=== PATIENT | male | born 1935 | race Caucasian/White ===

== ENCOUNTER 2018-04-29 12:00 | Observation (INO) ==
--- NOTE | 2018-04-29 14:33 | ED ---
HPI General Chief complaint: Pain: Chronic Stated complaint: Trouble swollowing post surgery x 3 days Time Seen by Provider: 04/29/18 13:53 Source: patient Mode of arrival: ambulatory Limitations: no limitations History of Present Illness HPI narrative: Patient presents with history of recent endoscopy and polyp removal from larynx. At the [facility] by ENT. She has long history of dilatation of esophagus in past. Patient has study that was done at the [facility] that shows narrowing of esophagus and potentially needs dilatation as we speak. Patient has had increasing difficulty with dysphasia and is to a point where he has a hard time swallowing pills. Patient has had minimal intake of liquids over the last 3 days. No chills or fever and stable for 2 days prior to the increasing dysphasia. Patient was sent in by his wood last maker for hydration. Related Data Home Medications Medication Instructions Recorded Confirmed Saccharomyces boulardii [Florastor] 250 mg PO BID 02/06/18 04/29/18 aspirin [Aspirin Low Dose] 81 mg PO DAILY 02/06/18 04/29/18 calcium carbonate [Calcium 600] 600 mg PO DAILY 02/06/18 04/29/18 diltiazem HCl [Cardizem CD] 180 mg PO BID 02/06/18 04/29/18 finasteride 5 mg PO DAILY 02/06/18 04/29/18 levocetirizine [Xyzal] 5 mg PO DAILY 02/06/18 04/29/18 levothyroxine [Synthroid] 100 mcg PO DAILY 02/06/18 04/29/18 loperamide [Imodium A-D] 2 mg PO HS 02/06/18 04/29/18 sertraline [Zoloft] 200 mg PO DAILY 02/06/18 04/29/18 tamsulosin [Flomax] 0.4 mg PO DAILY 02/06/18 04/29/18 hydrocodone-acetaminophen 1 tab PO Q4-6H PRN 04/29/18 04/29/18 Allergies Allergy/AdvReac Type Severity Reaction Status Date / Time codeine Allergy Severe RASH Verified 04/29/18 12:22 Review of Systems ROS: all other systems reviewed are negative [facility] Family History Family History Other Family history non-contributory Social History Social History Substance History: No History of Abuse Second Hand Smoke Exposure: No Smoking Status: Former smoker Tobacco Type: Cigarettes How Often Do You Have a Drink Containing Alcohol: Never Recent Travel in [facility] within the Last 8 Weeks: No Recent Out of Country Travel within the Last 8 Weeks: No Immunization History Tetanus Immunization: Unsure Exam Narrative Exam Narrative: GENERAL: Alert and oriented with total dysphagia. Unable to drink fluids SKIN: Focused skin assessment warm/dry. HEAD: Atraumatic. Normocephalic. EYES: Pupils equal and round. No scleral icterus. No injection or drainage. ENT: No nasal bleeding or discharge. Mucous membranes pink and moist. Posterior fornix normal appearing good no pain with swallowing motion. NECK: Trachea midline. No JVD. CARDIOVASCULAR: Regular rate and rhythm. No murmur appreciated. RESPIRATORY: No accessory muscle use. Clear to auscultation. Breath sounds equal bilaterally. GASTROINTESTINAL: Abdomen soft, non-tender, nondistended. Hepatic and splenic margins not palpable. MUSCULOSKELETAL: No obvious deformities. No clubbing. No cyanosis. No edema. NEUROLOGICAL: Awake and alert. No obvious cranial nerve deficits. Motor grossly within normal limits. Normal speech. PSYCHIATRIC: Appropriate mood and affect; insight and judgment normal. Course Reevaluation(s) Reevaluation #1: Case discussed with outside wood last maker and admitting wood last maker. Patient admitted for med surg with Orth O consult for esophageal instruction. Time: 15:50 Initial Documented Vital Signs Temperature 97.8 F 04/29/18 12:09 Pulse Rate 76 04/29/18 12:09 Respiratory Rate 16 04/29/18 12:09 Blood Pressure 144/76 H 04/29/18 12:09 Pulse Oximetry 95 04/29/18 12:09 Last Documented Vital Signs Temperature 97.7 F 04/30/18 08:00 Pulse Rate 89 04/30/18 08:00 Respiratory Rate 18 04/30/18 08:00 Blood Pressure 189/96 H 04/30/18 08:00 Pulse Oximetry 95 04/30/18 08:00 Critical Care Time Critical Care Time: No Medical Decision Making MDM Narrative Medical decision making narrative: Patient has total obstruction of swallowing and requires admission. Patient had ENT procedure with removal of laryngeal polyp 5 days prior to arrival it could contribute to the evolution of the obstruction. Medical Screen Exam Complete: Yes Emergency Medical Condition: Yes Lab Data Result diagrams: 04/29/18 14:35 04/29/18 14:35 Lab Results 10/06/18 10/06/18 Range/Units 14:35 14:35 CBC w Diff Auto diff final WBC 6.2 (4.0-11.0) th/mm3 RBC 4.96 (4.50-5.90) mil/mm3 Hgb 14.9 (13.0-17.0) gm/dL Hct 43.8 (39.0-51.0) % MCV 88.3 (80.0-100.0) fL MCH 30.0 (27.0-34.0) pg MCHC 34.0 (32.0-36.0) % RDW 13.1 (11.6-17.2) % Plt Count 194 (150-450) th/mm3 MPV 9.1 (7.0-11.0) fL Neut % (Auto) 68.7 (16.0-70.0) % Lymph % (Auto) 17.2 (9.0-44.0) % [place] % (Auto) 11.7 H (0.0-8.0) % Eos % (Auto) 1.7 (0.0-4.0) % Baso % (Auto) 0.7 (0.0-2.0) % Neut # (Auto) 4.3 (1.8-7.7) th/mm3 Lymph # (Auto) 1.1 (1.0-4.8) th/mm3 [place] # (Auto) 0.7 (0.0-0.9) th/mm3 Eos # (Auto) 0.1 (0.0-0.4) th/mm3 Baso # (Auto) 0.0 (0.0-0.2) th/mm3 WBC Differential . Differential Comment . Sodium 139 (136-145) meq/L Potassium 4.8 (3.5-5.1) meq/L Chloride 105 (98-107) meq/L Carbon Dioxide 24.0 (21.0-32.0) meq/L Anion Gap 10 (5-15) meq/L BUN 19 H (7-18) mg/dL Creatinine 1.20 (0.60-1.30) mg/dL Estimated GFR 58 L (>89) mL/min Random Glucose 93 (74-106) mg/dL Calcium 8.4 L (8.5-10.1) mg/dL Magnesium 2.6 H (1.5-2.5) mg/dL Imaging Data Radiologist's impression: Soft Tissue Neck CT 04/29/18 14:39 CONCLUSION: 1. Unremarkable CT soft tissue neck for patient's age. Discharge Plan Discharge Disposition Patient Disposition: 30 Still Patient Physicians Team ED Provider: Zach Valerio Primary Care Provider: Deejay Doherty Attending Provider: Siria Rodriguez Other Providers: Owen Bolivar Discharge Interventions Interventions: ED Discharge Assessment Last Done: 04/29/18 16:48 Status ED Status: Left Department Discharge Information Discharge Date/Time: 04/29/18 16:53
[2018-04-29] MEDS: Sod Chloride 0.9% Inj 1,000 ML IV.SIG SCH ×2 (14:53→15:49)
[2018-04-29 15:09] LABS: Baso % (Auto) 0.7 % (0.0-2.0); Eos # (Auto) 0.1 th/mm3 (0.0-0.4); Eos % (Auto) 1.7 % (0.0-4.0); Hematocrit 43.8 % (39.0-51.0); Hemoglobin 14.9 gm/dL (13.0-17.0); Lymph # (Auto) 1.1 th/mm3 (1.0-4.8); Lymph % (Auto) 17.2 % (9.0-44.0); Mean Corpuscular Volume 88.3 fL (80.0-100.0); Mean Platelet Volume 9.1 fL (7.0-11.0); Mono # (Auto) 0.7 th/mm3 (0.0-0.9); Mono % (Auto) 11.7 % (0.0-8.0); Neut # (Auto) 4.3 th/mm3 (1.8-7.7); Neut % (Auto) 68.7 % (16.0-70.0); Platelet Count 194 th/mm3 (150-450); Red Blood Count 4.96 mil/mm3 (4.50-5.90); Red Cell Distribution Width 13.1 % (11.6-17.2); White Blood Count 6.2 th/mm3 (4.0-11.0)
[2018-04-29] MEDS ORDERED: Sod Chloride 0.9% Inj 1,000 ML IV.CONT SCH (15:45)
[2018-04-29 16:18] LABS: Potassium 4.8 meq/L (3.5-5.1)
[2018-04-29 16:20] LABS: Calcium 8.4 mg/dL (8.5-10.1)
[2018-04-29 16:21] LABS: Magnesium 2.6 mg/dL (1.5-2.5)
--- NOTE | 2018-04-29 16:53 | P.HP ---
History of Present Illness Primary Care Physician: Deejay Doherty MD Chief Complaint: Dysphagia History of Present Illness: Patient with a known medical history of throat cancer with radiation, history of esophageal dilation, history of dysphagia, history of colon cancer with resection, hypertension who presented to the ED with complaints of inability to swallow. Patient underwent a vocal cord polyp removal on April 20, 2018 at [facility], was initially doing well after procedure when around afternoon he developed pain in his throat as well as difficulty swallowing. On Tuesday patient went to the [facility] for evaluation, at that time had a swallow evaluation done showing possible aspiration and reflux. Patient was sent home with recommendations to present to the ED if symptoms worsen. Patient presents today after speaking with his ornament stapler, Dr. Molina, advised patient to come to ED for IV hydration. He has been following with his ornament stapler for the last 20 years. Patient has underwent multiple esophageal dilations with the last one being roughly a year ago. His last EGD and colonoscopy was 2 years ago, at that time EGD was unremarkable. It was found on his colonoscopy 2 years ago that he had colon cancer, he underwent a colon resection with Dr. Lubin. Patient follows with Dr. Lubin who is been following his CEA levels, supposedly they have been trending up over the past 3 months. Patient underwent a CT scan of his abdomen in the past month with recommendations to follow. It should be noted that patient underwent a fundoplication in 2000. Patient has not taken his medications for the past 2 days nor has he been able to eat or drink anything. At the time of assessment patient is awake and alert, is not having trouble breathing, third examined, no erythema or swelling noted. Patient is able to drink a sip of water with complaints of it coming back up. Gastroenterology in to see patient at bedside , and is to undergo EGD in the a.m. at the main for possible esophageal dilation. - Diagnosis (1) Dysphagia (2) History of throat cancer Review of Systems All other systems reviewed negative except as stated in HPI PMFSH - History History Provided By: Patient, Family Member - Medical History Medical History: Medical History (Last Reviewed 04/29/18 @ 18:21 by Margarita Cordero) Dysphagia History of aspiration pneumonia History of colon cancer Hx of radiation therapy Vocal cord polyps - Surgical History Surgical History: Surgical History (Last Reviewed 04/29/18 @ 18:21 by Margarita Cordero) History of Alex fundoplication History of colon resection Hx of appendectomy Hx of inguinal hernia repair - Family History Family History: Family History (Last Updated 04/29/18 @ 18:21 by Margarita Cordero) Other Family history non-contributory - Social History I have reviewed the patient's Social History: Yes - Tobacco History Second Hand Smoke Exposure: No Tobacco Use In Past 30 Days: No Smoking Status: Former smoker Tobacco Type: Cigarettes - Alcohol History How Often Do You Have a Drink Containing Alcohol: Never - Substance Use History Substance History: No History of Abuse - Travel History Recent Travel in the [place] Within the Last 8 Weeks: No Recent Travel Out of the Country Within the Last 8 Weeks: No - Immunization History Tetanus Immunization: Unsure Medications and Allergies Active Medications: Active Medications Sodium Chloride (Ns Inj) 1,000 mls @ 1,000 mls/hr IV.SIG BOLUS TAMARA Stop: 04/30/18 15:44 Last Infusion: 04/29/18 16:43 Dose: Infused Sodium Chloride (Ns Inj) 1,000 mls @ 100 mls/hr IV.CONT .Q10H TAMARA Ondansetron HCl (Zofran Inj) 4 mg IV.PUSH Q6H PRN PRN Reason: NAUSEA OR VOMITING Allergies Allergy/AdvReac Type Severity Reaction Status Date / Time codeine Allergy Severe RASH Verified 04/29/18 12:22 Home Medications Medication Instructions Recorded Confirmed Type Saccharomyces boulardii [Florastor] 250 mg PO BID 02/06/18 04/29/18 History aspirin [Aspirin Low Dose] 81 mg PO DAILY 02/06/18 04/29/18 History calcium carbonate [Calcium 600] 600 mg PO DAILY 02/06/18 04/29/18 History diltiazem HCl [Cardizem CD] 180 mg PO BID 02/06/18 04/29/18 History finasteride 5 mg PO DAILY 02/06/18 04/29/18 History levocetirizine [Xyzal] 5 mg PO DAILY 02/06/18 04/29/18 History levothyroxine [Synthroid] 100 mcg PO DAILY 02/06/18 04/29/18 History loperamide [Imodium A-D] 2 mg PO HS 02/06/18 04/29/18 History sertraline [Zoloft] 200 mg PO DAILY 02/06/18 04/29/18 History tamsulosin [Flomax] 0.4 mg PO DAILY 02/06/18 04/29/18 History hydrocodone-acetaminophen 1 tab PO Q4-6H PRN 04/29/18 04/29/18 History Exam Vital signs: Vital Signs 04/29/18 12:09 04/29/18 15:03 04/29/18 16:29 Temperature 97.8 F Pulse Rate 76 87 80 Respiratory Rate 16 20 20 Blood Pressure 144/76 H 153/75 H 181/74 H Pulse Oximetry 95 95 Intake & Output 04/28/18 04/29/18 04/29/18 18:59 06:59 18:59 Intake Total 1999 Balance 1999 Weight 75.1 kg Intake: IV 1999 NS Inj 1,000 ML @ 1000 mls/hr 1999 IV.SIG BOLUS TAMARA Rx#:[id number] Other: # Voids 3 Narrative: GENERAL: Well-developed, well-nourished patient in [facility]. SKIN: Warm and dry. No rash. HEAD: Normocephalic. Atraumatic. EYES: Pupils equal and round. No scleral icterus. No injection or drainage. ENT: No nasal bleeding or discharge. Mucous membranes pink and moist. NECK: Supple. Trachea midline. CARDIOVASCULAR: Regular rate and rhythm. S1, S2 noted. No murmur appreciated. RESPIRATORY: No accessory muscle use. Clear to auscultation. Breath sounds equal bilaterally. GASTROINTESTINAL: Abdomen soft, non-tender, nondistended. Normoactive bowel sounds x4. MUSCULOSKELETAL: No obvious deformities. Extremities without clubbing, cyanosis , or edema. NEUROLOGICAL: Awake and alert. No obvious cranial nerve deficits. Motor grossly within normal limits. 5/5 muscle strength in bilateral upper and lower extremities. Normal speech. PSYCHIATRIC: Appropriate mood and affect; insight and judgment normal. Results - Labs CBC & Chem 7: 04/29/18 14:35 04/29/18 14:35 Labs: Laboratory Results - last 24 hr 04/29/18 04/29/18 14:35 14:35 CBC w Diff Auto diff final WBC 6.2 RBC 4.96 Hgb 14.9 Hct 43.8 MCV 88.3 MCH 30.0 MCHC 34.0 RDW 13.1 Plt Count 194 MPV 9.1 Neut % (Auto) 68.7 Lymph % (Auto) 17.2 [place] % (Auto) 11.7 H Eos % (Auto) 1.7 Baso % (Auto) 0.7 Neut # (Auto) 4.3 Lymph # (Auto) 1.1 Page # (Auto) 0.7 Eos # (Auto) 0.1 Baso # (Auto) 0.0 WBC Differential . Differential Comment . Sodium 139 Potassium 4.8 Chloride 105 Carbon Dioxide 24.0 Anion Gap 10 BUN 19 H Creatinine 1.20 Estimated GFR 58 L Random Glucose 93 Calcium 8.4 L Magnesium 2.6 H Caprini VTE Risk Assessment Caprini VTE Risk Assessment: Moderate/High Risk (score >= 2) Caprini Risk Assessment Model: Point Value = 1 Point Value = 2 Point Value = 3 Point Value = 5 Age 41-60 Minor surgery BMI > 25 kg/m2 Swollen legs Varicose veins or History of unexplained or recurrent spontaneous Oral contraceptives or hormone replacement Sepsis (< 1 month) Serious lung disease, including pneumonia (< 1 month) Abnormal pulmonary function Acute myocardial infarction Congestive heart failure (< 1 month) History of inflammatory bowel disease Medical patient at bed rest Age 61-74 Arthroscopic surgery Major open surgery (> 45 min) Laparoscopic surgery (> 45 min) Malignancy Confined to bed (> 72 hours) Immobilizing plaster cast Central venous access Age >= 75 History of VTE Family history of VTE Factor V Leiden Prothrombin [id number] Lupus anticoagulant Anticardiolipin antibodies Elevated serum homocysteine Heparin-induced thrombocytopenia Other congenital or acquired thrombophilia Stroke (< 1 month) Elective arthroplasty Hip, pelvis, or leg fracture Acute spinal cord injury (< 1 month) Prophylaxis Regimen: Total Risk Factor Score Risk Level Prophylaxis Regimen 0-1 Low Early ambulation 2 Moderate Order ONE of the following: *Sequential Compression Device (SCD) *Heparin 5000 units SQ BID 3-4 Higher Order ONE of the following medications: *Heparin 5000 units SQ TID *Enoxaparin/Lovenox 40 mg SQ daily (WT < 150 kg, CrCl > 30 mL/min) *Enoxaparin/Lovenox 30 mg SQ daily (WT < 150 kg, CrCl > 10-29 mL/min) *Enoxaparin/Lovenox 30 mg SQ BID (WT < 150 kg, CrCl > 30 mL/min) AND/OR *Sequential Compression Device (SCD) 5 or more Highest Order ONE of the following medications: *Heparin 5000 units SQ TID (Preferred with Epidurals) *Enoxaparin/Lovenox 40 mg SQ daily (WT < 150 kg, CrCl > 30 mL/min) *Enoxaparin/Lovenox 30 mg SQ daily (WT < 150 kg, CrCl > 10-29 mL/min) *Enoxaparin/Lovenox 30 mg SQ BID (WT < 150 kg, CrCl > 30 mL/min) AND *Sequential Compression Device (SCD) Assessment and Plan - Assessment (1) Dysphagia Code(s): R13.10 - Dysphagia, unspecified Status: Acute (2) History of throat cancer Code(s): Z85.819 - Personal history of malignant neoplasm of unspecified site of lip, oral cavity, and pharynx Status: Acute - Plan This is an 82-year-old male patient with: Dysphagia and inability to swallow times 3 days. 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 -Patient recently underwent a vocal cord polyp removal at [facility] on April 20, 2018. -Follows with Dr. Molina, gastroenterology. He recommended presentation to the ED for IV hydration. -Soft tissue of the neck CT was done in ED to rule out any bleeding, inflammation or infection, reviewed and unremarkable. -Ensure hydration, will continue IV fluids. -Monitor for any aspiration. Chest x-ray reviewed showing -CBC and BMP reviewed, essentially unremarkable. -Will hold home medications by mouth. -Gastroenterology has been consulted, input and recommendations appreciated. Plan is to undergo an EGD in the a.m. for possible esophageal dilation. -Patient will be transferred to the [facility] to undergo this procedure tomorrow morning. -It is felt that patient has not eat or drink for the past 3 days nor has he had his p.o. medications at home and this procedure should be done as soon as possible. -Supportive care. Hypertension, chronic: We will monitor blood pressure trends. Patient unable to take anything by mouth. IV Vasotec as needed for elevated BP. History of colon cancer with resection: Being followed with Dr. Wood outpatient. Stable at this time. DVT prophylaxis: SCDs. Hold chemical prophylaxis, patient undergo EGD in a.m. Patient is ambulatory.
--- NOTE | 2018-04-29 17:00 | CT ---
EXAM DATE: 04/29/2018 4:25 PM EDT AGE/SEX: 82 years / Male INDICATIONS: Dysphagia 3 days, Polyp removed from larynx 8 days ago CLINICAL DATA: This is the patient's initial encounter. Patient reports that signs and symptoms have been present for 3 days and indicates a pain score of 9/10. MEDICAL/SURGICAL HISTORY: Carcinoma, colon. Vocal cord polyps Colon resection. Appendectomy. Ing uinal hernia repair. RADIATION DOSE: 15.20 CTDI (mGy) COMPARISON: No prior exams available for comparison. TECHNIQUE: Helical acquisition was performed using a multirow detector CT scanner during the adminis tration of 70ML ml Omnipaque 350 (iohexol) nonionic water-soluble contrast as a single exam dose. U sing automated exposure control and adjustment of the mA and/or kV according to patient size, radiati on dose was kept as low as reasonably achievable to obtain optimal diagnostic quality images. DICOM format image data is available electronically for review and comparison. FINDINGS: Nasopharynx: The nasopharyngeal airway has a normal configuration. No mucosal thickening or mass is seen. Oropharynx: The intrinsic muscles of the tongue are symmetric. The tonsillar pillars are intact. T he prevertebral soft tissues are not thickened. Larynx: The supraglottic, glottic, and infraglottic structures are intact. Parapharyngeal: The parapharyngeal space is intact. Salivary Glands: The parotid and submandibular glands are intact. Lymph Nodes: No enlarged or necrotic-appearing nodes. Thyroid: Homogeneous enhancement without evidence of nodule. Bones: Degenerative changes of the cervical spine. CONCLUSION: 1. Unremarkable CT soft tissue neck for patient's age. Electronically signed by: Jayy Dowd MD 04/29/2018 4:59 PM EDT
--- NOTE | 2018-04-29 18:33 | MB ---
cc: Owen Bolivar MD,Hansel Doherty,Owen Farah MD, MD DATE: 04/29/2018 INDICATIONS FOR CONSULTATION: Dysphagia with history of esophageal stricture and history of dysphagia in the past. HISTORY OF PRESENT ILLNESS: Mr. Lund is an 82-year-old gentleman who has previously had problems with dysphagia requiring EGDs with dilation. This has been done in the past with Dr. Gee, last one he thinks was about 2-1/2 years ago. More recently, he has had a polyp removed from his vocal cords at [facility]. He said 4-5 days after that, he started having more pain and more difficulties with swallowing. That has progressed to where he says he can barely swallow his saliva now. He called Dr. Gee who advised hospital admission for hydration and further treatment. 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 PAST SURGICAL HISTORY: Alex fundoplication, colon resection, appendectomy, inguinal hernia, multiple EGDs, colonoscopies in the past. SOCIAL HISTORY: No tobacco, no alcohol reported. PHYSICAL EXAMINATION: GENERAL: Reveals a well-nourished man in no apparent distress. VITAL SIGNS: Stable. HEAD AND NECK: Anicteric sclerae. CHEST: Bilateral air entry without rales. ABDOMEN: Soft, nontender. No hepatosplenomegaly. Bowel sounds are present. CENTRAL NERVOUS SYSTEM: Nonfocal. RECTAL: Deferred at this time. MEDICINES: 1. Sertraline. 2. Loperamide. 3. Diltiazem. 4. Aspirin. 5. Levoxyl. 6. Thyroxine. 7. Finasteride. 8. Levocetirizine. LABORATORY DATA: White cell count of 6.2, hemoglobin 14.9, creatinine 1.20. CT of the neck is unremarkable. IMPRESSION: Dysphagia with history of esophageal strictures. RECOMMENDATIONS: Esophagogastroduodenoscopy with dilation recommended, timing to be determined, n.p.o. with IV fluid at this time. Further recommendations to follow. Owen Bolivar MD HZ/ct , 05:56 PM , 06:03 PM
[2018-04-29] MEDS: Dextrose 5% in Water Inj 1,000 ML IV.CONT SCH (19:21)
[2018-04-29] MEDS: Morphine Sulfate Inj 2 MG/ML Vial IV.PUSH PRN (20:53)
[2018-04-30] MEDS: Dextrose 5% in Water Inj 1,000 ML IV.CONT SCH ×3 (06:09→19:44)
--- NOTE | 2018-04-30 10:13 | ECG ---
Date Performed: 04/30/2018 Time Performed: 10:01:35 PTAGE: 82 years EKG: Sinus rhythm NORMAL ECG PREVIOUS TRACING : 09/18/2012 13.05 DOCTOR: Alba Nieto Interpretating Date/Time 04/30/2018 10:12:43
[2018-04-30] MEDS ORDERED: fentaNYL Citrate Inj 100 MCG/2 ML Ampul ONE (11:06)
--- NOTE | 2018-04-30 12:04 | P.PN ---
Subjective Interval history: Follow-up visit for dysphasia. Patient seen and examined sitting up in chair with at bedside. Patient is s/p esophageal dilation this a.m. GI. He is seen and examined sitting up in chair in no acute distress. He is sleepy this morning with ongoing pain with swallowing. Diet was advanced by GI, however patient continues to have complaints of pain and inability to swallow. made aware and ordered patient be kept NPO and ordered MBS test. Patient's GI doctor called today and discussed discharge back to [facility] for further workup. Physical Exam Vital signs: Vital Signs 04/29/18 12:09 04/29/18 15:03 04/29/18 16:29 Temperature 97.8 F Pulse Rate 76 87 80 Respiratory Rate 16 20 20 Blood Pressure 144/76 H 153/75 H 181/74 H Pulse Oximetry 95 95 04/29/18 20:00 04/30/18 00:00 04/30/18 04:00 Temperature 97.5 F L 97.8 F 97.3 F L Pulse Rate 78 78 73 Respiratory Rate 20 20 20 Blood Pressure 172/82 H 175/91 H 174/85 H Pulse Oximetry 95 93 L 93 L 04/30/18 06:00 04/30/18 08:00 04/30/18 10:53 Temperature 97.3 F L 97.7 F 98.1 F Pulse Rate 82 89 88 Respiratory Rate 20 18 17 Blood Pressure 158/71 H 189/96 H 166/92 H Pulse Oximetry 94 L 95 96 04/30/18 11:00 04/30/18 11:15 Temperature 97.8 F Pulse Rate 90 82 Respiratory Rate 16 17 Blood Pressure 163/88 H 150/73 H Pulse Oximetry 95 95 Intake & Output 04/29/18 04/30/18 04/30/18 18:59 06:59 18:59 Intake Total 2480 / 2480 1066 / 1066 50 / 50 Output Total 1300 / 1300 Balance 2480 / 2480 -234 / -234 50 / 50 Weight 76.2 kg 76.6 kg Intake: IV 1999 1066 / 1066 D5W Inj 1,000 ML @ 84 mls/hr IV 830 / 830 .CONT .[id number] [facility] Rx#: [id number] NS Inj 1,000 ML @ 100 mls/hr IV 236 / 236 .CONT .Q10H [facility] Rx#:[id number] NS Inj 1,000 ML @ 1000 mls/hr 1999 IV.SIG BOLUS [facility] Rx#:[id number] Oral 480 / 480 0 / 0 Anesthesia Amount 50 / 50 Output: Urine 1300 / 1300 Other: # Voids 2 # Bowel Movements 0 Weight On Admission 76.2 kg Narrative: GENERAL: Well-developed, well-nourished patient in [facility]. SKIN: Warm and dry. No rash. HEAD: Normocephalic. Atraumatic. EYES: Pupils equal and round. No scleral icterus. No injection or drainage. ENT: No nasal bleeding or discharge. Mucous membranes pink and moist. NECK: Supple. Trachea midline. CARDIOVASCULAR: Regular rate and rhythm. RESPIRATORY: No accessory muscle use. Clear to auscultation. Breath sounds equal bilaterally. GASTROINTESTINAL: Abdomen soft, non-tender, nondistended. Normoactive bowel sounds x4. MUSCULOSKELETAL: No obvious deformities. Extremities without clubbing, cyanosis , or edema. NEUROLOGICAL: Awake and alert. No obvious cranial nerve deficits. Motor grossly within normal limits. Moves bilateral upper and lower extremities. Normal speech. PSYCHIATRIC: Appropriate mood and affect; insight and judgment normal. Results - Labs CBC & Chem 7: 04/30/18 12:39 04/30/18 12:39 Laboratory Results - last 24 hr 04/29/18 04/29/18 14:35 14:35 CBC w Diff Auto diff final WBC 6.2 RBC 4.96 Hgb 14.9 Hct 43.8 MCV 88.3 MCH 30.0 MCHC 34.0 RDW 13.1 Plt Count 194 MPV 9.1 Neut % (Auto) 68.7 Lymph % (Auto) 17.2 [place] % (Auto) 11.7 H Eos % (Auto) 1.7 Baso % (Auto) 0.7 Neut # (Auto) 4.3 Lymph # (Auto) 1.1 [place] # (Auto) 0.7 Eos # (Auto) 0.1 Baso # (Auto) 0.0 WBC Differential . Differential Comment . Sodium 139 Potassium 4.8 Chloride 105 Carbon Dioxide 24.0 Anion Gap 10 BUN 19 H Creatinine 1.20 Estimated GFR 58 L Random Glucose 93 Calcium 8.4 L Magnesium 2.6 H - Imaging Impressions Soft Tissue Neck CT 04/29/18 14:39 CONCLUSION: 1. Unremarkable CT soft tissue neck for patient's age. Assessment and Plan - Assessment (1) Dysphagia Code(s): R13.10 - Dysphagia, unspecified Status: Acute (2) History of throat cancer Code(s): Z85.819 - Personal history of malignant neoplasm of unspecified site of lip, oral cavity, and pharynx Status: Acute - Plan This is an 82-year-old male patient with: Dysphagia and inability to swallow times 3 days. 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 -Patient recently underwent a vocal cord polyp removal at [facility] on April 20, 2018. -Follows with Dr. Molina, gastroenterology. -Soft tissue of the neck CT was done in ED to rule out any bleeding, inflammation or infection, reviewed and unremarkable. -GI consulted, appreciate assistance. -s/p EGD dilatation 04/30, but ongoing odynophagia and dysphagia following procedure. -NPO continue IV fluids. -Orders of barium swallow eval. requesting patient be DC so he can followup with [facility]. -Monitor for any aspiration. -CBC and BMP reviewed, essentially unremarkable. -Will hold home medications by mouth. Hypertension, chronic: We will monitor blood pressure trends. Patient unable to take anything by mouth. IV Vasotec as needed for elevated BP. History of colon cancer with resection: Being followed with Dr. Wood outpatient. Stable at this time. DVT prophylaxis: SCDs. Hold chemical prophylaxis, patient undergo EGD in a.m. Patient is ambulatory. Discussed Condition With: Patient, RN and Discharge Planning: Pending GI workup
[2018-04-30] MEDS: dilTIAZem CD 180 MG Capsule PO SCH ×3 (13:30→20:30)
[2018-04-30 13:49] LABS: Baso % (Auto) 0.5 % (0.0-2.0); Eos % (Auto) 0.8 % (0.0-4.0); Hematocrit 42.5 % (39.0-51.0); Hemoglobin 14.4 gm/dL (13.0-17.0); Lymph # (Auto) 0.5 th/mm3 (1.0-4.8); Lymph % (Auto) 7.2 % (9.0-44.0); Mean Corpuscular HGB Conc 33.9 % (32.0-36.0); Mean Corpuscular Hemoglobin 30.9 pg (27.0-34.0); Mean Corpuscular Volume 91.1 fL (80.0-100.0); Mean Platelet Volume 8.3 fL (7.0-11.0); Mono # (Auto) 0.3 th/mm3 (0.0-0.9); Mono % (Auto) 4.9 % (0.0-8.0); Neut # (Auto) 5.5 th/mm3 (1.8-7.7); Neut % (Auto) 86.6 % (16.0-70.0); Platelet Count 177 th/mm3 (150-450); Red Blood Count 4.66 mil/mm3 (4.50-5.90); Red Cell Distribution Width 13.6 % (11.6-17.2); White Blood Count 6.3 th/mm3 (4.0-11.0)
[2018-04-30 14:08] LABS: Calcium 8.4 mg/dL (8.5-10.1); Carbon Dioxide 26.6 meq/L (21.0-32.0); Potassium 4.1 meq/L (3.5-5.1)
[2018-04-30] MEDS: Morphine Sulfate Inj 2 MG/ML Vial IV.PUSH PRN ×2 (15:45→21:34)
[2018-05-01] MEDS: Dextrose 5% in Water Inj 1,000 ML IV.CONT SCH ×4 (03:42→19:27)
[2018-05-01] MEDS ORDERED: Sodium Chloride 0.9% 2 ML Flush PRN IV.FLUSH (05:38)
[2018-05-01] MEDS: dilTIAZem CD 180 MG Capsule PO SCH ×2 (09:03→20:39)
[2018-05-01] MEDS: Sodium Chloride 0.9% 2 ML Flush BID IV.FLUSH SCH ×2 (09:05→20:43)
--- NOTE | 2018-05-01 10:16 | P.PN ---
Subjective Interval history: Follow-up visit for dysphagia. Patient is seen and examined sitting up in chair in no acute distress. Patient continues to have some dysphasia however able to swallow small sips of water. Did manage to take p.o. pills this morning. Hypotensive overnight requiring IV Vasotec. Spoke with on speaker phone. has been in contact with [facility]. and patient requesting to speak to GI. spoke with patient and . Physical Exam Vital signs: Vital Signs 04/30/18 10:53 04/30/18 11:00 04/30/18 11:15 Temperature 98.1 F 97.8 F Pulse Rate 88 90 82 Respiratory Rate 17 16 17 Blood Pressure 166/92 H 163/88 H 150/73 H Pulse Oximetry 96 95 95 04/30/18 12:00 04/30/18 16:00 04/30/18 20:00 Temperature 97.1 F L 97.9 F 97.7 F Pulse Rate 82 82 87 Respiratory Rate 18 18 20 Blood Pressure 108/59 L 126/78 180/105 H Pulse Oximetry 96 91 L 94 L 05/01/18 00:00 05/01/18 04:00 05/01/18 06:20 Temperature 97.4 F L 97.4 F L Pulse Rate 89 66 68 Respiratory Rate 18 18 Blood Pressure 164/85 H 212/100 H 176/84 H Pulse Oximetry 95 97 Intake & Output 04/30/18 05/01/18 05/01/18 18:59 06:59 18:59 Intake Total 570 / 570 1000 / 1000 Output Total 200 / 200 525 / 525 Balance 370 / 370 475 / 475 Weight 76.5 kg Intake: IV 400 / 400 1000 / 1000 D5W Inj 1,000 ML @ 84 mls/hr IV 400 / 400 1000 / 1000 .CONT .[id number] [facility] Rx#: [id number] Oral 120 / 120 Anesthesia Amount 50 / 50 Output: Urine 200 / 200 525 / 525 Other: # Voids 2 Narrative: GENERAL: Well-developed, well-nourished patient in [place]. SKIN: Warm and dry. HEAD: Normocephalic. Atraumatic. EYES: Pupils equal and round. No scleral icterus. No injection or drainage. ENT: No nasal bleeding or discharge. Mucous membranes pink and moist. NECK: Supple. Trachea midline. CARDIOVASCULAR: Regular rate and rhythm. RESPIRATORY: No accessory muscle use. Clear to auscultation. Breath sounds equal bilaterally. GASTROINTESTINAL: Abdomen soft, non-tender, nondistended. Normoactive bowel sounds x4. MUSCULOSKELETAL: No obvious deformities. Extremities without clubbing, cyanosis , or edema. NEUROLOGICAL: Awake and alert. No obvious cranial nerve deficits. Motor grossly within normal limits. Moves bilateral upper and lower extremities. Normal speech. PSYCHIATRIC: Appropriate mood and affect; insight and judgment normal. Results - Labs CBC & Chem 7: 04/30/18 12:39 04/30/18 12:39 Laboratory Results - last 24 hr 04/30/18 04/30/18 12:39 12:39 WBC 6.3 RBC 4.66 Hgb 14.4 Hct 42.5 MCV 91.1 MCH 30.9 MCHC 33.9 RDW 13.6 Plt Count 177 MPV 8.3 Neut % (Auto) 86.6 H Lymph % (Auto) 7.2 L [place] % (Auto) 4.9 Eos % (Auto) 0.8 Baso % (Auto) 0.5 Neut # (Auto) 5.5 Lymph # (Auto) 0.5 L [place] # (Auto) 0.3 Eos # (Auto) 0.0 Baso # (Auto) 0.0 WBC Differential . Differential Comment Auto diff final Sodium 140 Potassium 4.1 Chloride 104 Carbon Dioxide 26.6 Anion Gap 9 BUN 16 Creatinine 0.98 Estimated GFR 74 L Random Glucose 114 H Calcium 8.4 L Assessment and Plan - Assessment (1) Dysphagia Code(s): R13.10 - Dysphagia, unspecified Status: Acute (2) History of throat cancer Code(s): Z85.819 - Personal history of malignant neoplasm of unspecified site of lip, oral cavity, and pharynx Status: Acute - Plan This is an 82-year-old male patient with: Dysphagia and inability to swallow times 3 days. 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 -Patient recently underwent a vocal cord polyp removal at [facility] on April 20, 2018. -Follows with Dr. Molina, gastroenterology. -Soft tissue of the neck CT was done in ED to rule out any bleeding, inflammation or infection, reviewed and unremarkable. -GI consulted, appreciate assistance. -s/p EGD dilatation 04/30, but ongoing odynophagia and dysphagia following procedure. -NPO except for mediations. IVF held overnight due to HTN. -Orders of barium swallow eval. -Monitor for any aspiration. -CBC and BMP reviewed, essentially unremarkable. Hypertension, chronic: IV Vasotec as needed for elevated BP, took Cardizem p.o. this a.m. BP improved. History of colon cancer with resection: Being followed with Dr. Wood outpatient. Stable at this time. DVT prophylaxis: SCDs. Patient is ambulatory. Discussed Condition With: Patient, , RN and . Discharge Planning: Pending GI workup
--- NOTE | 2018-05-01 14:53 | FL ---
EXAM DATE: 05/01/2018 12:00 AM EDT AGE/SEX: 82 years / Male INDICATIONS: Dysphagia. CLINICAL DATA: This is the patient's initial encounter. Patient reports that signs and symptoms have been present for 3 days and indicates a pain score of 4/10. MEDICAL/SURGICAL HISTORY: Carcinoma, colon. None. COMPARISON: None . FLUORO TIME: 0.5 IMAGE COUNT: 66 FINDINGS: The examination was abbreviated as the patient began to vomit. Contrast views of the hypopharynx demo nstrate a normal mucosal surface without filling defect. Rapid sequence images of the hypopharynx an d cervical esophagus during the passage of barium demonstrate luminal narrowing involving the cervica l esophagus at the level of thoracic inlet. This is mild in nature. No associated mucosal abnormality is seen. Inferior to this the esophagus shows a normal caliber and course. No evidence of aspiration . Poor primary peristalsis seen throughout the thoracic esophagus with multiple tertiary contraction s. The gastroesophageal junction is normal in configuration without evidence of hiatal hernia. CONCLUSION: 1. The examination was abbreviated because the patient began to vomit. 2. Mild narrowing of the lumen of the esophagus at the level of the thoracic inlet without associate d mucosal abnormality. This could relate to edema given the patient's history of recent surgery per h is report. Scarring can have a similar appearance. 3. Delayed transit through the esophagus secondary to poor primary peristalsis and multiple tertiary contractions suggesting presbyesophagus. Electronically signed by: Damien Ko MD 05/01/2018 2:52 PM EDT
--- NOTE | 2018-05-01 15:41 | P.PNGI ---
Subjective Interval history: Patient sitting up on couch in room, spouse present. Patient reporting continued difficulty swallowing some medications with frequent need to sip water. <Darrell,Cyn - Last Filed: 05/01/18 15:22> Physical Exam Vital signs: Vital Signs 04/30/18 16:00 04/30/18 20:00 05/01/18 00:00 Temperature 97.9 F 97.7 F 97.4 F L Pulse Rate 82 87 89 Respiratory Rate 18 20 18 Blood Pressure 126/78 180/105 H 164/85 H Pulse Oximetry 91 L 94 L 95 05/01/18 04:00 05/01/18 06:20 05/01/18 08:00 Temperature 97.4 F L 97.7 F Pulse Rate 66 68 79 Respiratory Rate 18 17 Blood Pressure 212/100 H 176/84 H 120/66 Pulse Oximetry 97 95 05/01/18 12:00 Temperature 97.6 F Pulse Rate 63 Respiratory Rate 18 Blood Pressure 132/67 Pulse Oximetry 95 Intake & Output 04/30/18 05/01/18 05/01/18 18:59 06:59 18:59 Intake Total 570 / 570 1000 / 1000 Output Total 200 / 200 525 / 525 Balance 370 / 370 475 / 475 Weight 76.5 kg Intake: IV 400 / 400 1000 / 1000 D5W Inj 1,000 ML @ 84 mls/hr IV 400 / 400 1000 / 1000 .CONT .[id number] [facility] Rx#: [id number] Oral 120 / 120 Anesthesia Amount 50 / 50 Output: Urine 200 / 200 525 / 525 Other: # Voids 2 Date of Last Bowel Movement 04/29/18 - Constitutional mild distress - Routine HEENT Exam Head: Present: normocephalic ENT: Present: mucous membranes moist, mucous membranes dry - Routine Neck Exam Absent: swelling - Routine Respiratory Exam Present: CTA bilaterally. Absent: accessory muscle use - Routine Cardiovascular Exam Present: RRR - Routine Abdominal Exam Present: soft, normoactive bowel sounds. Absent: tenderness, distended, guarding, firm - Routine Extremities Exam Present: full ROM. Absent: edema - Routine Skin Exam Present: dry, warm - Routine Neurological Exam Present: alert, oriented X3 - Detailed Neurological Exam: Coma Scale Eye Opening: Spontaneous Verbal Response: Oriented Motor Response: Obey commands [place] Coma Scale Total: 15 - Routine Psychiatric Exam Present: normal affect, cooperative <Cyn Ramírez - Last Filed: 05/01/18 15:22> Vital signs: Vital Signs 04/30/18 20:00 05/01/18 00:00 05/01/18 04:00 Temperature 97.7 F 97.4 F L 97.4 F L Pulse Rate 87 89 66 Respiratory Rate 20 18 18 Blood Pressure 180/105 H 164/85 H 212/100 H Pulse Oximetry 94 L 95 97 05/01/18 06:20 05/01/18 08:00 05/01/18 12:00 Temperature 97.7 F 97.6 F Pulse Rate 68 79 63 Respiratory Rate 17 18 Blood Pressure 176/84 H 120/66 132/67 Pulse Oximetry 95 95 Intake & Output 04/30/18 05/01/18 05/01/18 18:59 06:59 18:59 Intake Total 570 / 570 1000 / 1000 Output Total 200 / 200 525 / 525 Balance 370 / 370 475 / 475 Weight 76.5 kg Intake: IV 400 / 400 1000 / 1000 D5W Inj 1,000 ML @ 84 mls/hr IV 400 / 400 1000 / 1000 .CONT .[id number] [facility] Rx#: [id number] Oral 120 / 120 Anesthesia Amount 50 / 50 Output: Urine 200 / 200 525 / 525 Other: # Voids 2 Date of Last Bowel Movement 04/29/18 <Owen Bolivar - Last Filed: 05/01/18 16:40> Results - Labs CBC & Chem 7: 04/30/18 12:39 04/30/18 12:39 - Imaging Impressions Barium Swallow X-Ray 05/01/18 00:00 CONCLUSION: 1. The examination was abbreviated because the patient began to vomit. 2. Mild narrowing of the lumen of the esophagus at the level of the thoracic inlet without associated mucosal abnormality. This could relate to edema given the patient's history of recent surgery per his report. Scarring can have a similar appearance. 3. Delayed transit through the esophagus secondary to poor primary peristalsis and multiple tertiary contractions suggesting presbyesophagus. <Cyn Ramírez - Last Filed: 05/01/18 15:22> - Labs CBC & Chem 7: 04/30/18 12:39 04/30/18 12:39 - Imaging Impressions Barium Swallow X-Ray 05/01/18 00:00 CONCLUSION: 1. The examination was abbreviated because the patient began to vomit. 2. Mild narrowing of the lumen of the esophagus at the level of the thoracic inlet without associated mucosal abnormality. This could relate to edema given the patient's history of recent surgery per his report. Scarring can have a similar appearance. 3. Delayed transit through the esophagus secondary to poor primary peristalsis and multiple tertiary contractions suggesting presbyesophagus. <Owen Bolivar - Last Filed: 05/01/18 16:40> Assessment and Plan (1) Dysphagia Status: Acute Code(s): R13.10 - Dysphagia, unspecified - Plan 05/01/2018-patient post EGD with dilation on 04/30/2018. Patient reports continued difficulty swallowing pills and states frequent need to sip on water. Discussed rationale for modified barium swallow and explained procedure. Patient and spouse verbalize understanding and agreement. Modified barium swallow x-ray completed findings as follows--> The examination was abbreviated because the patient began to vomit. Mild narrowing of the lumen of the esophagus at the level of the thoracic inlet without associated mucosal abnormality. This could relate to edema given the patient's history of recent surgery per his report. Scarring can have a similar appearance. Delayed transit through the esophagus secondary to poor primary peristalsis and multiple tertiary contractions suggesting presbyesophagus. Plan -May repeat EGD tomorrow -Anti-emetics as needed -Analgesics as per attending -Supportive care -Further recommendations to follow based on patient's status and findings This patient has been seen by myself and Dr. Bolivar and this note is written on his behalf - Attending Attestation Dr. Bolivar <Cyn Ramírez - Last Filed: 05/01/18 15:22> (1) Dysphagia Status: Acute Code(s): R13.10 - Dysphagia, unspecified - Plan Seen and examined with [employer], barely able to tolerate liquids post egd/dilation. Barium swallow shows tightening at the UES level and presbyesophagus. On cardizem, will add levsine 0.125mg sl tid. Repeat egd/dilation planned for tomorrow. IVF. Discussed with pt. and at the bedside. The exam, history, and the medical decision-making described in the above note were completed with the assistance of the mid-level provider. I reviewed and agree with the findings presented. I attest that I had a [id number] encounter with the patient on the same day, and personally performed and documented my assessment and findings in the medical record. <Owen Bolivar - Last Filed: 05/01/18 16:40>
[2018-05-01] MEDS: Hyoscyamine Liq Drops 0.125 MG/ML 15 ML Bottle SL PRN ×2 (16:44→20:40)
[2018-05-02] MEDS: Dextrose 5% in Water Inj 1,000 ML IV.CONT SCH ×3 (06:02→21:14)
[2018-05-02] MEDS: dilTIAZem CD 180 MG Capsule PO SCH ×2 (08:00→21:11)
[2018-05-02] MEDS: Sodium Chloride 0.9% 2 ML Flush BID IV.FLUSH SCH ×2 (09:43→21:15)
[2018-05-02] MEDS ORDERED: Lidocaine PF 1% Inj 5 ML Syringe OTHER ONE (13:40)
[2018-05-02] MEDS ORDERED: Chlorhexidine Gluconate 2% 1 Pack (2 Cloths) TOPICAL ONE (13:55)
[2018-05-02] MEDS ORDERED: Metoprolol Tartrate 25 MG Tablet PO ONE (13:55)
[2018-05-02] MEDS ORDERED: Sodium Chlor 0.9% Inj 500 ML IV.SIG SCH (14:00)
--- NOTE | 2018-05-02 16:32 | P.PN ---
Subjective Interval history: Nursing denies any deterioration since last night. Patient returned from EGD with further dilatation. Had his initial EGD about 2 days ago. Physical Exam Vital signs: Vital Signs 05/01/18 20:00 05/02/18 00:00 05/02/18 08:00 Temperature 97.9 F 97.7 F 97.8 F Pulse Rate 75 75 67 Respiratory Rate 17 17 17 Blood Pressure 163/88 H 166/79 H 175/86 H Pulse Oximetry 98 96 98 05/02/18 12:00 Temperature 97.8 F Pulse Rate 63 Respiratory Rate 18 Blood Pressure 140/71 Pulse Oximetry 97 Intake & Output 05/01/18 05/02/18 05/02/18 18:59 06:59 18:59 Intake Total 1540 / 1540 1480 / 1480 1066 / 1066 Output Total 400 / 400 200 / 200 Balance 1540 / 1540 1080 / 1080 866 / 866 Intake: IV 1000 / 1000 1000 / 1000 816 / 816 D5W Inj 1,000 ML @ 84 mls/hr IV 1000 / 1000 1000 / 1000 816 / 816 .CONT .[id number] [facility] Rx#: [id number] Oral 540 / 540 480 / 480 Anesthesia Amount 250 / 250 Output: Urine 400 / 400 200 / 200 Other: # Voids 3 Date of Last Bowel Movement 04/29/18 05/01/18 05/01/18 # Bowel Movements 1 Narrative: Clear lungs bilaterally, unlabored breathing Heart sounds regular rate rhythm, no murmurs Results - Labs CBC & Chem 7: 04/30/18 12:39 04/30/18 12:39 Assessment and Plan - Assessment (1) Dysphagia Code(s): R13.10 - Dysphagia, unspecified Status: Acute (2) History of throat cancer Code(s): Z85.819 - Personal history of malignant neoplasm of unspecified site of lip, oral cavity, and pharynx Status: Acute - Plan This is an 82-year-old male patient admitted with dysphagia and odynophagia. Has a history of vocal cord polyps and throat cancer with radiation and multiple esophageal dilatations in the past. Follows Dr. Gee outpt. Dysphagia and odynophagia -Follows with Dr. Molina, gastroenterology. -GI following, s/p EGD dilatation 04/30, but ongoing odynophagia and dysphagia following procedure. 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 Now status post repeat EGD today with further dilatation, trial of clear liquids per GI -Levsin per GI Hypertension, chronic: cardizem History of colon cancer with resection: Being followed with Dr. Wood outpatient. Stable at this time. DVT prophylaxis: SCDs. Patient is ambulatory. Discharge Planning: Discharge pending GI clearance and tolerating p.o. intake.
[2018-05-02] MEDS: Hyoscyamine Liq Drops 0.125 MG/ML 15 ML Bottle SL PRN (21:12)
[2018-05-03] MEDS: Dextrose 5% in Water Inj 1,000 ML IV.CONT SCH (05:34)
[2018-05-03] MEDS: Sodium Chloride 0.9% 2 ML Flush BID IV.FLUSH SCH (09:43)
[2018-05-03] MEDS: dilTIAZem CD 180 MG Capsule PO SCH (10:10)
[2018-05-03] MEDS ORDERED: Sertraline 100 MG Tablet PO SCH (11:15)
--- NOTE | 2018-05-03 11:36 | P.PNGI ---
Subjective Interval history: Patient awake alert sitting up in chair, spouse present. Patient reports no difficulty eating breakfast meal this morning or taking p.o. medications. Post EGD with dilation on 05/02/2018. <Cyn Ramírez - Last Filed: 05/03/18 11:28> Physical Exam Vital signs: Vital Signs 05/02/18 12:00 05/02/18 16:00 05/02/18 20:00 Temperature 97.8 F 97.8 F 98.3 F Pulse Rate 63 63 86 Respiratory Rate 18 18 18 Blood Pressure 140/71 137/74 174/100 H Pulse Oximetry 97 98 95 05/03/18 00:00 05/03/18 08:00 Temperature 98.0 F 97.9 F Pulse Rate 62 71 Respiratory Rate 16 18 Blood Pressure 150/79 H 156/83 H Pulse Oximetry 94 L 96 Intake & Output 05/02/18 05/03/18 05/03/18 18:59 06:59 18:59 Intake Total 2046 / 2046 1000 / 1000 1000 / 1000 Output Total 2400 / 2400 1100 / 1100 Balance -354 / -354 -100 / -100 1000 / 1000 Weight 73.9 kg Intake: IV 816 / 816 1000 / 1000 1000 / 1000 D5W Inj 1,000 ML @ 84 mls/hr IV 816 / 816 1000 / 1000 1000 / 1000 .CONT .[id number] [facility] Rx#: [id number] Oral 980 / 980 Anesthesia Amount 250 / 250 Output: Urine 2400 / 2400 1100 / 1100 Other: Date of Last Bowel Movement 05/01/18 05/02/18 05/02/18 - Constitutional no acute distress - Routine HEENT Exam Head: Present: normocephalic - Routine Respiratory Exam Present: CTA bilaterally. Absent: accessory muscle use - Routine Cardiovascular Exam Present: RRR - Routine Abdominal Exam Present: soft, normoactive bowel sounds. Absent: tenderness, distended, guarding, firm - Routine Extremities Exam Present: full ROM. Absent: edema - Routine Skin Exam Present: dry, warm - Routine Neurological Exam Present: alert, oriented X3 - Detailed Neurological Exam: Coma Scale Eye Opening: Spontaneous Verbal Response: Oriented Motor Response: Obey commands [place] Coma Scale Total: 15 - Routine Psychiatric Exam Present: normal affect, cooperative <Cyn Ramírez - Last Filed: 05/03/18 11:28> Vital signs: Vital Signs 05/02/18 16:00 05/02/18 20:00 05/03/18 00:00 Temperature 97.8 F 98.3 F 98.0 F Pulse Rate 63 86 62 Respiratory Rate 18 18 16 Blood Pressure 137/74 174/100 H 150/79 H Pulse Oximetry 98 95 94 L 05/03/18 08:00 05/03/18 12:00 Temperature 97.9 F 97.7 F Pulse Rate 71 93 H Respiratory Rate 18 18 Blood Pressure 156/83 H 146/87 H Pulse Oximetry 96 93 L Intake & Output 05/02/18 05/03/18 05/03/18 18:59 06:59 18:59 Intake Total 2046 / 2046 1000 / 1000 1000 / 1000 Output Total 2400 / 2400 1100 / 1100 Balance -354 / -354 -100 / -100 1000 / 1000 Weight 73.9 kg Intake: IV 816 / 816 1000 / 1000 1000 / 1000 D5W Inj 1,000 ML @ 84 mls/hr IV 816 / 816 1000 / 1000 1000 / 1000 .CONT .[id number] [facility] Rx#: [id number] Oral 980 / 980 Anesthesia Amount 250 / 250 Output: Urine 2400 / 2400 1100 / 1100 Other: Date of Last Bowel Movement 05/01/18 05/02/18 05/02/18 <Owen Bolivar - Last Filed: 05/03/18 14:05> Results - Labs CBC & Chem 7: 04/30/18 12:39 04/30/18 12:39 <Cyn Ramírez - Last Filed: 05/03/18 11:28> - Labs CBC & Chem 7: 04/30/18 12:39 04/30/18 12:39 <Owen Bolivar - Last Filed: 05/03/18 14:05> Assessment and Plan (1) Dysphagia Status: Acute Code(s): R13.10 - Dysphagia, unspecified - Plan Dysphagia-post EGD with dilatation: Patient awake and alert sitting up in chair , post EGD with dilatation on 05/02/2018. No reported difficulty or pain with swallowing and tolerated breakfast meal and p.o. medications well. EGD findings as follows--class a esophagitis noted erythematous gastritis in the gastric antrum, biopsy performed. Normal duodenal mucosa in the bulb and second portion of the duodenum. Retroflexed views revealed no abnormalities. Retroflexed views revealed Alex fundoplication. Plan -Diet as tolerated -Patient planning to follow-up with Dr. Gee -Biopsy results-call [facility] for same in 2 weeks -Antireflux regimen -Continue PPI -Continue Levsin as directed-antispasmodic sublingual -Recommendation for EGD with dilation in 1 year or sooner if needed This patient has been seen by myself and Dr. Bolivar and this note is written on his behalf - Attending Attestation Dr. Bolivar <Cyn Ramírez - Last Filed: 05/03/18 11:28> (1) Dysphagia Status: Acute Code(s): R13.10 - Dysphagia, unspecified - Plan Seen and examined with GERIATRIC PHYSICAL THERAPIST, doing better after the second egd/dilation. Diet as tolerated. DC home with fu Dr Gee on home meds. <Owen Bolivar - Last Filed: 05/03/18 14:05>
--- NOTE | 2018-05-03 12:45 | P.DS ---
Date of admission: 04/29/18 16:12 Primary care physician: Deejay Doherty MD Brief History from admission: Patient with a known medical history of throat cancer with radiation, history of esophageal dilation, history of dysphagia, history of colon cancer with resection, hypertension who presented to the ED with complaints of inability to swallow. Patient underwent a vocal cord polyp removal on April 20, 2018 at [facility], was initially doing well after procedure when around afternoon he developed pain in his throat as well as difficulty swallowing. On Tuesday patient went to the [facility] for evaluation, at that time had a swallow evaluation done showing possible aspiration and reflux. Patient was sent home with recommendations to present to the ED if symptoms worsen. Patient presents today after speaking with his spray maker, Dr. Molina, advised patient to come to ED for IV hydration. He has been following with his spray maker for the last 20 years. Patient has underwent multiple esophageal dilations with the last one being roughly a year ago. His last EGD and colonoscopy was 2 years ago, at that time EGD was unremarkable. It was found on his colonoscopy 2 years ago that he had colon cancer, he underwent a colon resection with Dr. Lubin. Patient follows with Dr. Lubin who is been following his CEA levels, supposedly they have been trending up over the past 3 months. Patient underwent a CT scan of his abdomen in the past month with recommendations to follow. It should be noted that patient underwent a fundoplication in 2000. Patient has not taken his medications for the past 2 days nor has he been able to eat or drink anything. At the time of assessment patient is awake and alert, is not having trouble breathing, third examined, no erythema or swelling noted. Patient is able to drink a sip of water with complaints of it coming back up. Gastroenterology in to see patient at bedside , and is to undergo EGD in the a.m. at the main for possible esophageal dilation. DS: Diagnosis - Discharge Diagnosis (1) Dysphagia Status: Acute (2) History of throat cancer Status: Acute DS: Medications - Discharge Medications Prescriptions: hyoscyamine sulfate 0.125 mg PO QID PRN #60 tab PRN Reason: esophageal spasm DS: Summary Hospital Course: Patient was admitted, started on IV hydration. Underwent initial EGD with dilatation with minimal improvement in dysphagia and odynophagia. 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 Underwent repeat EGD with further dilatation as well as biopsy of stomach for gastritis, with significant improvement in p.o. intake. Patient has met maximal benefit from hospitalization and is clinically stable for discharge. - Time Spent with Patient Total time spent providing and/or coordinating discharge services: Less than 30 minutes - Quality: VTE Deep Vein Thrombosis/Pulmonary Embolism Present on Admission: No Exam Vital signs: Vital Signs 05/02/18 16:00 05/02/18 20:00 05/03/18 00:00 Temperature 97.8 F 98.3 F 98.0 F Pulse Rate 63 86 62 Respiratory Rate 18 18 16 Blood Pressure 137/74 174/100 H 150/79 H Pulse Oximetry 98 95 94 L 05/03/18 08:00 Temperature 97.9 F Pulse Rate 71 Respiratory Rate 18 Blood Pressure 156/83 H Pulse Oximetry 96 Intake & Output 05/02/18 05/03/18 05/03/18 18:59 06:59 18:59 Intake Total 2046 / 2046 1000 / 1000 1000 / 1000 Output Total 2400 / 2400 1100 / 1100 Balance -354 / -354 -100 / -100 1000 / 1000 Weight 73.9 kg Intake: IV 816 / 816 1000 / 1000 1000 / 1000 D5W Inj 1,000 ML @ 84 mls/hr IV 816 / 816 1000 / 1000 1000 / 1000 .CONT .[id number] [facility] Rx#: [id number] Oral 980 / 980 Anesthesia Amount 250 / 250 Output: Urine 2400 / 2400 1100 / 1100 Other: Date of Last Bowel Movement 05/01/18 05/02/18 05/02/18 Narrative: Oropharynx appears benign Ambulating well, unlabored breathing, no acute distress Results Procedures completed during hospitalization: EGD with esophageal dilatation (x2), gastric biopsy Pending studies at discharge: Pending at discharge 05/02/18 07:24 Surgical [PTH] Routine - Impressions ITS Impressions Soft Tissue Neck CT 04/29/18 14:39 CONCLUSION: 1. Unremarkable CT soft tissue neck for patient's age. Barium Swallow X-Ray 05/01/18 00:00 CONCLUSION: 1. The examination was abbreviated because the patient began to vomit. 2. Mild narrowing of the lumen of the esophagus at the level of the thoracic inlet without associated mucosal abnormality. This could relate to edema given the patient's history of recent surgery per his report. Scarring can have a similar appearance. 3. Delayed transit through the esophagus secondary to poor primary peristalsis and multiple tertiary contractions suggesting presbyesophagus. Discharge Plan - Discharge Disposition Patient Disposition: 01 Discharge Home - Discharge Condition Condition: Stable - Discharge Order Discharge Orders: Discharge Order (Routine); Ordered 05/03/18 Ordered By: Mike Morales - Discharge Details Discharge Comment: DC if cleared with GI - Physicians Team Primary Care Provider: Deejay Doherty Attending Provider: Mike Morales Other Providers: Owen Bolivar MD
== END 2018-05-03 13:46 | disposition home or self-care (01) ==
LOC: PHEDA 12:00 → PHED 12:00 → PHEDA 16:53 → PH3 17:25 → N07 04-30 05:49
PROVIDERS: ADMIT Hospitalist; ATTEND Hospitalist